=== PATIENT | male | born 1995 | race Caucasian/White ===

== ENCOUNTER → 2016-10-25 | Outpatient (CLI) | payer BC ==
[~2016-10-25] MED LIST: TOPI200T8 PO
== END ==
LOC: NEU 14:55
PROVIDERS: ATTEND Psychiatry & Neurology Neurology
DX: G40.209 Localization-related (focal) (partial) symptomatic epilepsy and epileptic syndromes with complex partial seizures, not intractable, without status epilepticus (principal)
CPT/HCPCS: 95819

== ENCOUNTER → 2016-11-21 | Outpatient (CLI) | payer BC | LOC: LABN 18:27 | PROVIDERS: ATTEND Family Medicine Sports Medicine | DX: M71.062 Abscess of bursa, left knee (principal) | CPT/HCPCS: 87070 ==